=== PATIENT | male | born 1980 | race African-American/Black ===

== ENCOUNTER 2020-01-30 22:05 | Emergency (ER) | payer MEDICAID ==
[~2020-01-30] VITALS: Ht 167.6 cm; Wt 82.0 kg
[2020-01-31] MEDS ORDERED: LIDOCAINE 1%/EPI 1:100,000 10 ML VIAL IJ ONE (00:30)
[2020-01-31] MEDS ORDERED: TETANUS, DIPHTHERIA, PERTUSSIS VAC/PF 0.5ML (>7YR OLD) IM ONE (00:30)
[2020-01-31] MEDS ORDERED: ACETAMINOPHEN 325MG TABLET PO ONE (00:30)
[2020-01-31] MEDS ORDERED: BACITRACIN ZINC OINT UDPKT TOP ONE (00:30)
[2020-01-31 01:59] VITALS: BP 140/97
== END 2020-01-31 02:02 | disposition home or self-care (01) ==
LOC: ER 22:05
DX: S41.112A Laceration without foreign body of left upper arm, initial encounter (principal); Y07.04 Female partner, perpetrator of maltreatment and neglect; X99.1XXA Assault by knife, initial encounter; Y93.89 Activity, other specified; Y92.89 Other specified places as the place of occurrence of the external cause; F12.90 Cannabis use, unspecified, uncomplicated
CPT/HCPCS: 12002; 99282; J3490; Z7610